=== PATIENT | female | born 1970 | race Caucasian/White ===

== ENCOUNTER 2018-05-10 19:28 | Inpatient (IN) | payer OTHER ==
[~2018-05-10] VITALS: Ht 162.6 cm; Wt 98.9 kg
[~2018-05-10 19:28] MED LIST: PERCOCET 5/31 TABLET PO; ZANTAC150 MG PO; ZOFRAN4 MG PO
[2018-05-10 21:45] LABS: BASOPHIL (%) 0.4 % (0-1); BASOPHIL COUNT 0.1 K/uL (0-0.1); EOSINOPHIL (%) 1.8 % (0-5); EOSINOPHIL COUNT 0.2 K/uL (0-0.3); HEMATOCRIT 38.1 % (36.0-46.0); HEMOGLOBIN 12.8 G/DL (11.9-15.5); IMMATURE GRANULOCYTE (%) 0.4 % (0.0-0.7); LYMPHOCYTE (%) 10.8 % (15-42); LYMPHOCYTE COUNT 1.4 K/uL (1.0-2.8); MCH 29.4 PG (29.0-34.0); MCHC 33.6 G/DL (30.0-36.0); MCV 87.4 FL (83-99); MONOCYTE (%) 8.1 % (3-12); NEUTROPHIL (%) 78.5 % (45-76); NEUTROPHIL COUNT 9.9 K/uL (1.8-6.4); PLATELET COUNT 259 K/uL (156-360); RBC DIS.WIDTH-CV 12.1 % (11.8-14.6); RBC DIS.WIDTH-SD 39.2 % (39-53); RED BLOOD COUNT 4.36 M/uL (3.80-5.20); WHITE BLOOD COUNT 12.6 K/uL (4.1-10.2)
[2018-05-10 21:55] LABS: CHLORIDE 111 mEq/L (99-109); POTASSIUM 3.5 mEq/L (3.7-5.4); SODIUM 143 mEq/L (136-147)
[2018-05-10 21:57] LABS: GLUCOSE 103 mg/dL (70-99)
[2018-05-10 22:01] LABS: CREATININE 1.1 mg/dL (0.6-1.3); GFR ESTIMATE (CALCULATED) 57 mL/min/
[2018-05-10 22:02] LABS: UREA NITROGEN (BUN) 14 mg/dL (9-23)
[2018-05-10 22:06] LABS: TROP-I INTERPRETATION INDETERMINATE; TROPONIN-I 0.37 ng/mL (0.0-0.30)
[2018-05-11 00:27] LABS: TROP-I INTERPRETATION POSITIVE
[2018-05-11 00:41] LABS: TROPONIN-I 0.61 ng/mL (0.0-0.30)
[2018-05-11 01:49] LABS: INTER. NORMALIZED RATIO 1.1
[2018-05-11 01:51] LABS: PTT 23.9 SEC (25-37)
[2018-05-11 04:11] VITALS: BP 154/92
[2018-05-11 07:06] VITALS: BP 141/77
[2018-05-11 07:32] LABS: HEMATOCRIT 41.6 % (36.0-46.0); HEMOGLOBIN 14.1 G/DL (11.9-15.5); MCHC 33.9 G/DL (30.0-36.0); MCV 85.6 FL (83-99); PLATELET COUNT 301 K/uL (156-360); RBC DIS.WIDTH-CV 12.2 % (11.8-14.6); RBC DIS.WIDTH-SD 38.4 % (39-53); RED BLOOD COUNT 4.86 M/uL (3.80-5.20); WHITE BLOOD COUNT 10.3 K/uL (4.1-10.2)
[2018-05-11 07:51] LABS: TROP-I INTERPRETATION NEGATIVE; TROPONIN-I 0.26 ng/mL (0.0-0.30)
[2018-05-11] MEDS ORDERED: OMEPRAZOLE40 M1 PO (11:00)
[2018-05-11] MEDS ORDERED: LITE COAT ASPI325 M1 PO (11:01)
[2018-05-11] MEDS ORDERED: SYNTHROID137 MCG PO (11:01)
[2018-05-11] MEDS ORDERED: EFFEXOR37.5 MG PO (11:01)
[2018-05-11] MEDS ORDERED: VITAMIN D2000 UNI1 PO (11:01)
[2018-05-11] MEDS ORDERED: ALLEGRA-D 241 TABLET PO (11:02)
[2018-05-11] MEDS ORDERED: SUPER B COMPL400 MCG PO (11:02)
[2018-05-11 12:27] VITALS: BP 163/90
[2018-05-11 13:28] LABS: TROP-I INTERPRETATION NEGATIVE; TROPONIN-I 0.13 ng/mL (0.0-0.30)
[2018-05-11 15:23] VITALS: BP 134/65
[2018-05-11 19:27] VITALS: BP 175/93
[2018-05-11 23:59] VITALS: BP 145/90
[2018-05-12 04:55] VITALS: BP 139/80
[2018-05-12 07:02] VITALS: BP 140/86
[2018-05-12 11:42] VITALS: BP 168/90
[2018-05-12 15:02] VITALS: BP 144/86
[2018-05-12 18:18] LABS: APPEARANCE CLEAR ((CLEAR)); BILIRUBIN NEGATIVE; BLOOD SMALL; COLOR STRAW ((YELLOW)); GLUCOSE (STRIP) NEGATIVE; KETONES NEGATIVE; LEUKOCYTES NEGATIVE; NITRITE NEGATIVE; PROTEIN (STRIP) NEGATIVE; SPECIFIC GRAVITY 1.009 (1.000-1.030); UROBILINOGEN 0.2 MG/DL (0.2-1.0)
[2018-05-12 18:37] LABS: BACTERIA RARE /HPF; EPITHELIAL CELLS RARE /HPF; MUCUS NONE SEEN /LPF; RED BLOOD CELLS 0-5 /HPF (0-5); UCUL ADDED? NO; WHITE BLOOD CELLS 0-5 /HPF (0-5)
[2018-05-12 18:43] LABS: BENZODIAZEPINES, URINE SCREEN Negative (200 ng/mL)
[2018-05-12 19:06] VITALS: BP 123/75
[2018-05-12 23:30] VITALS: BP 139/79
[2018-05-13 00:18] VITALS: BP 144/78
[2018-05-13 05:50] LABS: HEMATOCRIT 42.9 % (36.0-46.0); HEMOGLOBIN 14.2 G/DL (11.9-15.5); MCH 28.6 PG (29.0-34.0); MCHC 33.1 G/DL (30.0-36.0); MCV 86.5 FL (83-99); PLATELET COUNT 314 K/uL (156-360); RBC DIS.WIDTH-CV 12.4 % (11.8-14.6); RBC DIS.WIDTH-SD 39.2 % (39-53); RED BLOOD COUNT 4.96 M/uL (3.80-5.20); WHITE BLOOD COUNT 11.6 K/uL (4.1-10.2)
[2018-05-13 06:11] LABS: CHLORIDE 105 MEQ/L (99-109); CREATININE 0.8 MG/DL (0.6-1.3); GFR ESTIMATE (CALCULATED) > 59 mL/min/; GLUCOSE 114 mg/dL (70-99); MAGNESIUM 2.2 mg/dl (1.3-2.7); SODIUM 140 MEQ/L (136-147); UREA NITROGEN (BUN) 13 mg/dL (9-23)
[2018-05-13 08:13] VITALS: BP 139/75
[2018-05-13] MEDS ORDERED: NITROSTAT0.4 MG SL (10:29)
[2018-05-13] MEDS ORDERED: LISINOPRIL10 MG PO (10:29)
[2018-05-13 11:37] VITALS: BP 155/87
== END 2018-05-13 12:46 | disposition home or self-care (01) | DRG 922 ==
LOC: EME → EDBD 19:28 → EDOF 05-11 02:09 → ENRESERV 05-11 02:10 → 4EAST 05-11 04:02
PROVIDERS: Emergency Medicine; Hospitalist; Internal Medicine
DX: T78.1XXA Other adverse food reactions, not elsewhere classified, initial encounter (principal); I21.4 Non-ST elevation (NSTEMI) myocardial infarction; I45.10 Unspecified right bundle-branch block; I10 Essential (primary) hypertension; E03.9 Hypothyroidism, unspecified; K21.9 Gastro-esophageal reflux disease without esophagitis; D72.829 Elevated white blood cell count, unspecified; J45.909 Unspecified asthma, uncomplicated; F32.9 Major depressive disorder, single episode, unspecified; F41.9 Anxiety disorder, unspecified; E66.9 Obesity, unspecified; Z68.36 Body mass index [BMI] 36.0-36.9, adult
CPT/HCPCS: 71046; 71250; 78582; 80048; 80306 90; 81003; 83735; 84484; 85025; 85027; 85610; 85730; 93005; 99281; 99285; A9539; A9540; J1100; J2405; J7030; S0028

== ENCOUNTER 2018-05-15 14:41 | Emergency (ER) | payer OTHER ==
[~2018-05-15] VITALS: Ht 162.6 cm; Wt 94.5 kg
[~2018-05-15 14:41] MED LIST changes: +ALLEGRA-D 241 TABLET PO; +EFFEXOR37.5 MG PO; +LISINOPRIL10 MG PO; +LITE COAT ASPI325 M1 PO; +NITROSTAT0.4 MG SL; +OMEPRAZOLE40 M1 PO; +SUPER B COMPL400 MCG PO; +SYNTHROID137 MCG PO; +VITAMIN D2000 UNI1 PO
[2018-05-15 15:12] LABS: HEMATOCRIT 41.8 % (36.0-46.0); HEMOGLOBIN 14.5 G/DL (11.9-15.5); MCH 29.5 PG (29.0-34.0); MCHC 34.7 G/DL (30.0-36.0); PLATELET COUNT 305 K/uL (156-360); RBC DIS.WIDTH-CV 12.2 % (11.8-14.6); RBC DIS.WIDTH-SD 37.4 % (39-53); RED BLOOD COUNT 4.92 M/uL (3.80-5.20); WHITE BLOOD COUNT 11.1 K/uL (4.1-10.2)
[2018-05-15 15:22] LABS: CHLORIDE 106 mEq/L (99-109); POTASSIUM 3.9 mEq/L (3.7-5.4); SODIUM 141 mEq/L (136-147)
[2018-05-15 15:24] LABS: GLUCOSE 107 mg/dL (70-99)
[2018-05-15 15:27] LABS: GFR ESTIMATE (CALCULATED) > 59 mL/min/
[2018-05-15 15:28] LABS: UREA NITROGEN (BUN) 16 mg/dL (9-23)
[2018-05-15] MEDS ORDERED: ZOFRAN4 MG PO (16:24)
[2018-05-15] MEDS ORDERED: PERCOCET 5/31 TABLET PO (16:24)
[2018-05-15] MEDS ORDERED: SPRIX1 EACH BOTH NARES (16:24)
[2018-05-15] MEDS ORDERED: FLOMAX0.4 MG PO (16:26)
[2018-05-15 16:44] LABS: APPEARANCE SL.HAZY ((CLEAR)); BILIRUBIN NEGATIVE; BLOOD MODERATE; COLOR YELLOW ((YELLOW)); GLUCOSE (STRIP) NEGATIVE; KETONES NEGATIVE; LEUKOCYTES NEGATIVE; NITRITE NEGATIVE; PROTEIN (STRIP) 30; UROBILINOGEN 0.2 MG/DL (0.2-1.0)
[2018-05-15 17:03] LABS: BACTERIA NONE SEEN /HPF; CALCIUM OXALATE CRYSTALS 2+ /HPF; EPITHELIAL CELLS 1+ /HPF; MUCUS 1+ /LPF; RED BLOOD CELLS TNTC /HPF (0-5); UCUL ADDED? YES
[2018-05-15 17:30] VITALS: BP 150/82
== END 2018-05-15 17:30 | disposition home or self-care (01) ==
LOC: EME 14:41
PROVIDERS: Physician Assistant
DX: N13.2 Hydronephrosis with renal and ureteral calculous obstruction (principal); I10 Essential (primary) hypertension; Z87.442 Personal history of urinary calculi; J45.909 Unspecified asthma, uncomplicated; Z90.49 Acquired absence of other specified parts of digestive tract; Z88.6 Allergy status to analgesic agent; Z88.0 Allergy status to penicillin
CPT/HCPCS: 74176; 80048; 81003; 85027; 87086; 99281; 99284; J1885; J2405; J7040

== ENCOUNTER 2018-06-04 08:45 | Day surgery (SDC) | payer OTHER ==
[~2018-06-04 08:45] MED LIST changes: +FLOMAX0.4 MG PO; +SPRIX1 EACH BOTH NARES
[2018-06-04] MEDS ORDERED: ATIVAN1 MG PO (09:04)
[2018-06-04] MEDS ORDERED: DELTASONE20 M1 PO (09:05)
[2018-06-04] MEDS ORDERED: ZANTAC150 MG PO (09:06)
[2018-06-04] MEDS ORDERED: BENADRYL50 MG PO (09:06)
== END 2018-06-04 15:45 | disposition home or self-care (01) ==
LOC: CATH 08:45
DX: R07.9 Chest pain, unspecified (principal); E07.9 Disorder of thyroid, unspecified; Z91.013 Allergy to seafood
CPT/HCPCS: C1769; C1887; J1644; J2250; J3010; J7040